=== PATIENT | male | born 1980 | race Caucasian/White ===

== ENCOUNTER 2019-02-06 14:08 | Emergency (ER) | payer SELFPAY ==
[~2019-02-06] VITALS: Ht 175.3 cm; Wt 68.0 kg
[~2019-02-06 14:08] MED LIST: CIPR500T94 PO; HYDR-3164 PO; PENI500T PO
[2019-02-06 14:14] VITALS: BP 133/89
[2019-02-06] MEDS ORDERED: KETOROLAC 30 MG/ML VIAL. IM STA (14:17)
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
--- NOTE | 2019-02-06 15:12 | RAD ---
Examination: PA view the chest with left RIBS HISTORY: History of pain COMPARISON: None available. Findings/ impression: The cardiomediastinal silhouette grossly appears unremarkable. There is no acute infiltrate or visualized pneumothorax. On one of the images of the left ribs, there appears to be a lucency in the posterior left 11th rib best visualized on the oblique view could be minimal displaced fracture however evaluation is limited due to overlapping bowel gas. Correlate for point tenderness. Electronically signed by: Jean Samano MD (02/06/2019 3:09 PM) [id number]
== END 2019-02-06 15:32 | disposition home or self-care (01) ==
LOC: ER 14:08
DX: R07.81 Pleurodynia (principal)
CPT/HCPCS: 71101; 96372; 99284; J1885

== ENCOUNTER 2020-01-02 02:38 | Emergency (ER) | payer SELFPAY ==
[~2020-01-02] VITALS: Ht 175.3 cm; Wt 65.0 kg
[2020-01-02] MEDS ORDERED: LIDOCAINE (700MG/PATCH) PATCH. TD ONE (03:30)
[2020-01-02] MEDS ORDERED: CYCLOBENZAPRINE 10 MG TABLET. PO ONE (03:30)
[2020-01-02] MEDS ORDERED: HYDROcodone/APAP 5/325MG 1 TAB TABLET PO ONE (03:30)
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
[2020-01-02] MEDS ORDERED: LIDO1ADH63 TP (05:12)
[2020-01-02] MEDS ORDERED: CYCL5TAB PO (05:12)
[2020-01-02] MEDS ORDERED: IBUP-1007 PO (05:12)
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
[2020-01-02 05:36] VITALS: BP 122/77
== END 2020-01-02 05:36 | disposition home or self-care (01) ==
LOC: ER 02:38
DX: M54.6 Pain in thoracic spine (principal); M54.5 Low back pain; R20.2 Paresthesia of skin; F17.200 Nicotine dependence, unspecified, uncomplicated; Z98.890 Other specified postprocedural states
CPT/HCPCS: 72128; 72131; 99285